=== PATIENT | male | born 1995 | race American Indian/Alaskan Native ===

== ENCOUNTER 2021-04-20 09:57 | Emergency (ER) | payer SELFPAY ==
--- NOTE | 2021-04-20 12:03 | Emergency Department Report ---
Chief Complaint: Urogenital-Male Stated Complaint: PAIN AND BURNING IN PELVIC AREA Time Seen by Provider: 04/20/21 11:44 - HPI History of Present Illness: pt is a 25-year-old male who presents emergency room states that he has had a penile rash for a month. He denies any dysuria, abdominal pain, urinary retention, pain or swelling in the testicles, hematuria. He reports that he was advised by his partner that they have HSV-2. He has not been tested for any STDs or seen anybody for this. Patient denies any past medical history. No allergies to medications. Vitals are normal On exam: Non toxic appearing, no acute distress atraumatic, normocephalic normal appearance of the eyes, EOMI, no periorbital edema or ecchymosis moist mucus membranes No respiratory distress, no accessory muscle use A&O x4, normal gait skin is warm, dry exam chaperoned by juan Renteria, there are ulcerations and erythema present to the penile shaft, glans penis, scrotal skin, no scrotal edema, no tenderness palpation of the testicles or epididymal region, normal testicular lie, normal cremasteric reflex Examination could represent herpes outbreak, patient needs a full STD panel for evaluation, patient will be referred to the health department and a clinic in order to receive full STD panel and treatment as they deem appropriate Patient verbalized understanding and states that he will follow-up Advised patient not to engage in sexual intercourse and have any partner tested and treated as well Discussed return precautions with patient Medical screen examination performed there is no threat to life or limb this time MSE screening note: Focused history and physical exam performed. ED Disposition for MSE Clinical Impression: Penile ulcer Disposition: Z- MED SCREENING EXAM-LEFT Is pt being admited?: No Does the pt Need Aspirin: No Condition: Stable Additional Instructions: Please follow-up with the clinic or health department in order to receive a full STD panel. Please have any partner tested and treated as well. Avoid sexual intercourse. Return to emergency room for new or worsening symptoms. [facility] Address: [address] [place] [id number] Referrals: [facility] [Outside] - 2-3 Days Time of Disposition: 12:04 Print Language: JORDANIAN
[2021-04-20 12:04] VITALS: BP 123/84
== END 2021-04-20 12:13 | disposition left against medical advice (07) ==
LOC: ED 09:57
DX: N48.5 Ulcer of penis (principal); Z53.21 Procedure and treatment not carried out due to patient leaving prior to being seen by health care provider